=== PATIENT | male | born 1955 | race Caucasian/White ===

== ENCOUNTER 2024-04-16 11:35 | Emergency (ER) | payer OTHER ==
[2024-04-16] MEDS ORDERED: ONDANSETRON 4 MG/2 ML VIAL ONE (12:55)
[2024-04-16] MEDS ORDERED: FENTANYL CITR 100 MCG/2 ML ONE (12:56)
[2024-04-16 13:01] LABS: Absolute Basophils 0.1 K/uL (0-0.5); Absolute Eosinophils 0.4 K/uL (0-0.5); Absolute Lymphocytes (CBC) 1.1 K/uL (0.7-4.9); Absolute Monocytes 0.8 K/uL (0.1-1.3); Absolute Neutrophil 6.4 K/uL (1.8-8.0); Basophils % 0.9 % (0-1.3); Eosinophils % 4.1 % (0-4.4); Hematocrit 47.7 % (39.6-49.0); Hemoglobin 15.4 g/dL (13.6-17.9); Lymphocytes % 12.3 % (15.3-44.8); MCH 29.4 pg (27.0-35.0); MCHC 32.3 g/dL (32.0-36.0); MCV 91.2 fL (80-100); MPV 7.5 fL (7.6-11.3); Monocytes % 8.7 % (3.3-12.3); Nucleated Red Blood Cells % 0.1 % (0-0); Platelets 261 thou/uL (152-406); RBC Red Blood Cell Count 5.23 M/uL (4.33-5.43); Red Cell Distribution Width 14.3 % (12.1-15.2)
--- NOTE | 2024-04-16 13:15 | RAD REPORT ---
EXAMINATION: US Extrem Venous W Compress Sravan CLINICAL INDICATION: [facility] MAIN Pain;Swelling Bed Name: IW1 N TECHNIQUE: Complete bilateral duplex sonography of the BILATERAL lower extremity veins was performed. The examination included compression for vein patency, color Doppler imaging and flow augmentation in response to distal compression of the distal external iliac, common femoral, femoral, popliteal, t ibial, and great and small saphenous veins. COMPARISON: No prior exam. FINDINGS: Duplex sonography testing of the veins of the BILATERAL lower extremity was performed. Color flow pauline ging shows all veins to be compressible with [id number] color filling. Pulsatile and phasic flow is present within all lower extremity deep and superficial veins examined. IMPRESSION: There is no deep vein or superficial vein thrombosis.
[2024-04-16 13:21] LABS: Albumin 2.6 g/dL (3.4-5.0); Albumin/Globulin Ratio 0.7 (1.1-1.8); Bilirubin Direct 0.5 mg/dL (0-0.2); Bilirubin Indirect, Calculated 0.8 mg/dL (0.2-0.8); Bilirubin Total 1.3 mg/dL (0.2-1.0); Protein, Total 6.6 g/dL (6.4-8.2); Troponin High Sensitivity 3.8 pg/mL (<58.9)
--- NOTE | 2024-04-16 13:51 | RAD REPORT ---
EXAMINATION: ONE VIEW CHEST XR CLINICAL INDICATION: Male, 68 years old.,DYSPNEA TECHNIQUE: Frontal chest projection is submitted. Examination is limited by patient positioning and t echnique. COMPARISON: No prior exam. FINDINGS: Decreased inspiratory effort limits evaluation. Streaky left basilar opacification, could reflect ate lectasis, subpulmonic effusion, or a combination of both. No pneumothorax or other sizable effusion. The heart is normal in size. Mediastinal contours are unremarkable. IMPRESSION: As above.
[2024-04-16 13:58] LABS: PT Prothrombin Time 14.3 SECONDS (9.4-12.5); Protime INR 1.37
--- NOTE | 2024-04-16 15:17 | EDPHYS ---
Physician Documentation [facility] Name: Zen Berg Age: 68 yrs Sex: Male : 1955 Arrival Date: 04/16/2024 Time: 11:35 Bed 6 Private MD: YARIEL Physician Stas Larsen HPI: 04/16 15:13 This 68 yrs old Male presents to ER via Wheelchair with complaints of BL foot kasia swelling and painful. 15:13 The patient presents with pain, swelling. The complaints affect the right leg and left kasia leg. Context: The problem was sustained at an unknown site. Modifying factors: The symptoms are alleviated by elevating leg, the symptoms are aggravated by movement. Associated signs and symptoms: The patient has no apparent associated signs or symptoms. leg swelling. Treatment prior to arrival includes: no previous treatment. Severity of symptoms: At their worst the symptoms were mild in the emergency department the symptoms are unchanged. The patient has experienced similar episodes in the past, multiple times. Historical: - Allergies: 11:54 Chlorhexidine Gluconate; ph 11:54 Bees; ph - PMHx: 11:54 Atrial fibrillation; Hypercholesterolemia; Hypertensive disorder; Gout; ph - PSHx: 11:54 Appendectomy; ph - Immunization history:: Adult Immunizations unknown. - Infectious Disease History:: Denies. - Social history:: Smoking status: Patient denies any tobacco usage or history of. - Family history:: not pertinent. ROS: 15:13 Constitutional: Negative for fever, chills, and weight loss, Eyes: Negative for injury, kasia pain, redness, and discharge, ENT: Negative for injury, pain, and discharge, Neck: Negative for injury, pain, and swelling, Cardiovascular: Negative for chest pain, palpitations, and edema, Respiratory: Negative for shortness of breath, cough, wheezing, and pleuritic chest pain, Abdomen/GI: Negative for abdominal pain, nausea, vomiting, diarrhea, and constipation, Back: Negative for injury and pain, : Negative for injury, bleeding, discharge, and swelling, Skin: Negative for injury, rash, and discoloration, Neuro: Negative for headache, weakness, numbness, tingling, and seizure, Psych: Negative for depression, anxiety, suicide ideation, homicidal ideation, and hallucinations, Allergy/Immunology: Negative for hives, rash, and allergies, Endocrine: Negative for neck swelling, polydipsia, polyuria, polyphagia, and marked weight changes, Hematologic/Lymphatic: Negative for swollen nodes, abnormal bleeding, and unusual bruising, 15:13 MS/extremity: Positive for swelling, of the right leg and left leg, Exam: 15:17 Constitutional: This is a well developed, well nourished patient who is awake, alert, kasia and in no acute distress. Head/Face: Normocephalic, atraumatic. Eyes: Pupils equal round and reactive to light, extra-ocular motions intact. Lids and lashes normal. Conjunctiva and sclera are non-icteric and not injected. Cornea within normal limits. Periorbital areas with no swelling, redness, or edema. ENT: Nares patent. No nasal discharge, no septal abnormalities noted. Tympanic membranes are normal and external auditory canals are clear. Oropharynx with no redness, swelling, or masses, exudates, or evidence of obstruction, uvula midline. Mucous membranes moist. Neck: Trachea midline, no thyromegaly or masses palpated, and no cervical lymphadenopathy. Supple, full range of motion without nuchal rigidity, or vertebral point tenderness. No Meningismus. Chest/axilla: Normal chest wall appearance and motion. Nontender with no deformity. No lesions are appreciated. Cardiovascular: Regular rate and rhythm with a normal S1 and S2. No gallops, murmurs, or rubs. Normal PMI, no JVD. No pulse deficits. Respiratory: Lungs have equal breath sounds bilaterally, clear to auscultation and percussion. No rales, rhonchi or wheezes noted. No increased work of breathing, no retractions or nasal flaring. Abdomen/GI: Soft, non-tender, with normal bowel sounds. No distension or tympany. No guarding or rebound. No evidence of tenderness throughout. Back: No spinal tenderness. No costovertebral tenderness. Full range of motion. Skin: Warm, dry with normal turgor. Normal color with no rashes, no lesions, and no evidence of cellulitis. Neuro: Awake and alert, GCS 15, oriented to person, place, time, and situation. Cranial nerves II-XII grossly intact. Motor strength 5/5 in all extremities. Sensory grossly intact. Cerebellar exam normal. Normal gait. Psych: Awake, alert, with orientation to person, place and time. Behavior, mood, and affect are within normal limits. 15:17 ECG was reviewed by the Attending Physician. Vital Signs: 11:53 BP 123 / 91; Pulse 75; Resp 18; Temp 97.5; Pulse Ox 98% on R/A; Weight 111.13 kg; ph Height 5 ft. 9 in. ; 14:39 BP 112 / 83; Pulse 70; ld1 15:30 BP 118 / 84; Pulse 74; Resp 17; Pulse Ox 98% ; cm10 11:53 Body Mass Index 36.18 (111.13 kg, 175.26 cm) ph MDM: 11:51 Medical Screening Exam initiated kasia 15:18 Differential diagnosis: contusion, tendonitis. Differential Diagnosis sepsis, flu. Data [facility] reviewed: vital signs, nurses notes, lab test result(s), EKG, radiologic studies, doppler, plain films. Consideration of Admission/Observation Escalation of care including admission/observation considered. I considered the following discharge prescriptions or medication management in the emergency department Medications were administered in the Emergency Department. See MAR. Independent interpretation of the following test(s) in the Emergency Department EKG: See my EKG interpretation above. Test considered but Not performed: Ultrasound no 2 d echo. Historians other than the Patient: Spouse/Significant Other: well informed. Care significantly affected by the following chronic conditions: Hypertension, Congestive Heart Failure, Obesity, a fib, high chlesterol. Counseling: I had a detailed discussion with the patient and/or guardian regarding the historical points, exam findings, and any diagnostic results supporting the discharge/admit diagnosis, lab results, radiology results, the need for outpatient follow up, for definitive care, a vocational examiner, an physics faculty member. 04/16 11:52 Order name: Basic Metabolic Panel; Complete Time: 15: [facility] 04/16 11:52 Order name: CBC with Diff; Complete Time: 15: [facility] 04/16 11:52 Order name: LFT's; Complete Time: 15: [facility] 04/16 11:52 Order name: Magnesium; Complete Time: 15: [facility] 04/16 11:52 Order name: NT PRO-BNP; Complete Time: 15: [facility] 04/16 11:52 Order name: PT-INR; Complete Time: 15: [facility] 04/16 11:52 Order name: Troponin HS; Complete Time: 15: [facility] 04/16 11:52 Order name: Urinalysis w/ reflexes; Complete Time: 15:53 [facility] 04/16 11:52 Order name: XRAY Chest (1 view); Complete Time: 15:07 [facility] 04/16 11:52 Order name: US Extremity Venous W Compression Sravan; Complete Time: 15:07 [facility] 04/16 15:12 Order name: INCENTIVE SPIROMETRY 04/16 11:52 Order name: Cardiac monitoring; Complete Time: 13:11 [facility] 04/16 11:52 Order name: EKG - Nurse/Tech; Complete Time: 13:11 [facility] 04/16 11:52 Order name: IV Saline Lock; Complete Time: 12:52 [facility] 04/16 11:52 Order name: Labs collected and sent; Complete Time: 12:52 [facility] 04/16 11:52 Order name: O2 Per Protocol; Complete Time: 12:52 [facility] 04/16 11:52 Order name: O2 Sat Monitoring; Complete Time: 12:52 [facility] 04/16 13:21 Order name: Labs - recollect needed: recollect the coags hemolyzed per lab; Complete eb Time: 13:47 EC:17 Rate is 67 beats/min. Rhythm is irregularly irregular. QRS Morgan is Normal. MO interval kasia is normal. QRS interval is normal. QT interval is normal. No Q waves. T waves are Normal. No ST changes noted. Clinical impression: Atrial Fibrillation. Interpreted by me. Reviewed by me. Administered Medications: 13:10 Drug: fentaNYL (PF) IVP 25 mcg IVP once Route: IVP; Site: right forearm; cm10 13:45 Follow up: Response: No adverse reaction cm10 13:10 Drug: Ondansetron IVP 4 mg IVP once; over 2 minutes Route: IVP; Site: right forearm; cm10 13:45 Follow up: Response: No adverse reaction cm10 Disposition Summary: 04/16/24 15:17 Discharge Ordered Notes: Location: Home kasia Problem: new kasia Symptoms: have improved kasia Condition: Stable kasia Diagnosis - Edema, unspecified kasia - Persistent atrial fibrillation kasia - Atelectasis kasia Followup: kasia - With: Private Physician - When: 2 - 3 days - Reason: Recheck today's complaints, Continuance of care, Re-evaluation by your physician Followup: kasia - With: Bryan Greenwood MD - When: 2 - 3 days - Reason: Recheck today's complaints, Re-evaluation by your physician Followup: kasia - With: Pancho Quintero MD - When: 2 - 3 days - Reason: Recheck today's complaints, Re-evaluation by your physician Discharge Instructions: - Discharge Summary Sheet kasia - Atelectasis, Adult kasia - Atrial Fibrillation kasia - Edema kasia - Edema, [id number] kasia - Peripheral Edema kasia Forms: - Medication Reconciliation Form kasia - Antibiotic Education kasia - Prescription Opioid Use kasia - Patient Portal Instructions kasia - Leadership Thank You Letter kasia Signatures: Dispatcher [employer] EDMS Stas Larsen MD MD cha Hall, Patricia, RN RN Perri Beaulieu Clarissa, RN RN cm10 Corrections: (The following items were deleted from the chart) 11:53 11:53 BASIC METABOLIC PANEL+C.LAB.BRZ ordered. EDMS EDMS 11:53 11:53 CBC+H.LAB.BRZ ordered. EDMS EDMS 11:53 11:53 HEPATIC FUNCTION+C.LAB.BRZ ordered. EDMS EDMS 11:53 11:53 MAGNESIUM+C.LAB.BRZ ordered. EDMS EDMS 11:53 11:53 PROBNP+C.LAB.BRZ ordered. EDMS EDMS 11:53 11:53 PROTIME (+INR)+COAG.LAB.BRZ ordered. EDMS EDMS 11:53 11:53 Troponin High Sensitivity+C.LAB.BRZ ordered. EDMS EDMS 11:53 11:53 Urinalysis+U.LAB.BRZ ordered. EDMS EDMS 11:53 11:53 Chest Single View+RAD.RAD.BRZ ordered. EDMS EDMS 11:53 11:53 Extrem Venous W Compression Sravan+US.RAD.BRZ ordered. EDMS EDMS 15:53 15:20 Proteinuria, unspecified kasia kasia
--- NOTE | 2024-04-16 15:17 | ER ---
Nurse's Notes [facility] Name: Zen Berg Age: 68 yrs Sex: Male : 1955 Arrival Date: 04/16/2024 Time: 11:35 Bed 6 Private MD: Diagnosis: Edema, unspecified;Persistent atrial fibrillation;Atelectasis Presentation: 04/16 11:53 Chief complaint: Patient states: Bilateral leg swelling that has been ongoing for ph months, not worse today, pt states, " I just can't take it anymore." Does take Lasix but states that it is not helping. Coronavirus screen: Vaccine status: Patient reports being unvaccinated. Ebola Screen: No symptoms or risks identified at this time. Initial Sepsis Screen: Does the patient meet any 2 criteria? No. Patient's initial sepsis screen is negative. Does the patient have a suspected source of infection? No. Patient's initial sepsis screen is negative. Risk Assessment: Do you want to hurt yourself or someone else? Patient reports no desire to harm self or others. Onset of symptoms was April 16, 2024. 11:53 Method Of Arrival: Wheelchair ph 11:53 Acuity: JAYDE 3 ph Triage Assessment: 11:57 General: Appears in no apparent distress. comfortable, Behavior is calm, cooperative. ph Pain: Denies pain. Cardiovascular: Edema is 2+ to left midcalf, left ankle, right midcalf and right ankle. Historical: - Allergies: 11:54 Chlorhexidine Gluconate; ph 11:54 Bees; ph - PMHx: 11:54 Atrial fibrillation; Hypercholesterolemia; Hypertensive disorder; Gout; ph - PSHx: 11:54 Appendectomy; ph - Immunization history:: Adult Immunizations unknown. - Infectious Disease History:: Denies. - Social history:: Smoking status: Patient denies any tobacco usage or history of. - Family history:: not pertinent. Screenin:11 [facility] ED Fall Risk Assessment (Adult) History of falling in the last 3 months, cm10 including since admission No falls in past 3 months (0 pts) Confusion or Disorientation No (0 pts) Intoxicated or Sedated No (0 pts) Impaired Gait No (0 pts) Mobility Assist Device Used No (0 pt) Altered Elimination No (0 pt) Score/Fall Risk Level 0 - 2 = Low Risk Oriented to surroundings, Maintained a safe environment, Hourly rounding (assess needs \\T\\ fall precautionary measures) done. Abuse screen: Denies threats or abuse. Denies injuries from another. Nutritional screening: No deficits noted. Tuberculosis screening: No symptoms or risk factors identified. Assessment: 13:16 General: Appears in no apparent distress. uncomfortable, Behavior is calm, cooperative. cm10 Neuro: No deficits noted. Level of Consciousness is awake, alert, obeys commands, Oriented to person, place, time, situation, Appropriate for age. Respiratory: No deficits noted. Airway is patent Respiratory effort is even, unlabored, Respiratory pattern is regular, symmetrical. Musculoskeletal: Reports pain in right ankle and right midcalf and left ankle and left midcalf. Vital Signs: 11:53 BP 123 / 91; Pulse 75; Resp 18; Temp 97.5; Pulse Ox 98% on R/A; Weight 111.13 kg; ph Height 5 ft. 9 in. ; 14:39 BP 112 / 83; Pulse 70; ld1 15:30 BP 118 / 84; Pulse 74; Resp 17; Pulse Ox 98% ; cm10 11:53 Body Mass Index 36.18 (111.13 kg, 175.26 cm) ph ED Course: 11:39 Patient arrived in ED. ra3 11:51 Stas Larsen MD is Attending Physician. kasia 11:54 Triage completed. ph 11:57 Arm band placed on Patient placed in waiting room, Patient notified of wait time. ph 12:36 XRAY Chest (1 view) In Process Unspecified. EDMS 12:39 Mary Richardson, RN is Primary Nurse. cm10 12:43 US Extremity Venous W Compression Sravan In Process Unspecified. EDMS 12:52 Basic Metabolic Panel Sent. cm10 12:52 CBC with Diff Sent. cm10 12:52 LFT's Sent. cm10 12:52 Magnesium Sent. cm10 12:52 NT PRO-BNP Sent. cm10 12:52 PT-INR Sent. cm10 12:52 Troponin HS Sent. cm10 12:52 Initial lab(s) drawn, by me, sent to lab. Inserted saline lock: 20 gauge in right cm10 forearm, using aseptic technique. Blood collected. Flushed with 10 mL NS. 13:11 Patient has correct armband on for positive identification. Bed in low position. Call cm10 light in reach. Side rails up X2. Provided Education on: ER process and procedures.. Client placed on continuous cardiac and pulse oximetry monitoring. NIBP monitoring applied. slubber frame changer on. 13:11 EKG done, by ED staff, reviewed by Stas Larsen MD. cm10 15:21 Bryan Greenwood MD is Referral Physician. kasia 15:21 Pancho Quintero MD is Referral Physician. kasia 16:29 IV discontinued, intact, bleeding controlled, No redness/swelling at site. Pressure ap3 dressing applied. 16:37 No provider procedures requiring assistance completed. cm10 Administered Medications: 13:10 Drug: fentaNYL (PF) IVP 25 mcg IVP once Route: IVP; Site: right forearm; cm10 13:45 Follow up: Response: No adverse reaction cm10 13:10 Drug: Ondansetron IVP 4 mg IVP once; over 2 minutes Route: IVP; Site: right forearm; cm10 13:45 Follow up: Response: No adverse reaction cm10 Medication: 13:11 VIS not applicable for this client. cm10 Outcome: 15:17 Discharge ordered by . [facility] 16:29 Discharged to home via wheelchair, with family, ap3 16:29 Condition: good 16:29 Discharge instructions given to patient, family, Instructed on discharge instructions, follow up and referral plans. Demonstrated understanding of instructions, follow-up care, 16:37 Patient left the ED. cm10 Signatures: Dispatcher [employer] EDMS Stas Larsen MD MD cha Hall, Patricia RN RN ph Luciana Dudley RN RN ap3 Gracy Perkins RN RN [email or web address] Mary Richardson RN RN cm10 Nazanin Jasso ra3 Corrections: (The following items were deleted from the chart) 12:38 12:35 Patient's name was called from ER lobby. No response. Unable to locate patient. ph Will disposition as left without being seen by a provider. ph 12:52 12:24 Patient's name was called from ER lobby. No response. ph cm10
[2024-04-16 15:45] LABS: Specific Gravity 1.008 (1.005-1.030); Urine Bilirubin NEGATIVE (Negative); Urine Blood Negative (Negative); Urine Clarity Clear (Clear); Urine Color Light-Yellow (Yellow); Urine Glucose NEGATIVE (Negative); Urine Ketones NEGATIVE (Negative); Urine Microscopic Reflex YN NO UMIC; Urine Nitrite NEGATIVE (Negative); Urine Protein NEGATIVE (Negative); Urine Urobilinogen Normal (Normal)
[2024-04-16 17:26] VITALS: TEMP 97.5; O2SAT 98
[2024-04-16 17:37] VITALS: BP 118/84
== END 2024-04-16 16:37 | disposition home or self-care (01) ==
LOC: ER 11:35
DX: R60.9 Edema, unspecified (principal); I48.19 Other persistent atrial fibrillation; J98.11 Atelectasis; I10 Essential (primary) hypertension; E78.00 Pure hypercholesterolemia, unspecified; Z88.8 Allergy status to other drugs, medicaments and biological substances; Z91.030 Bee allergy status
CPT/HCPCS: 85025; 80048; 36415; 83735; 85610; 80076; 81003; 84484; 83880; 71045; 93970; 96375; 96374; 99285; J3010; J2405

== ENCOUNTER 2024-04-20 18:19 | Inpatient (IN) | payer OTHER ==
--- OUTSIDE RECORDS SUMMARY | 2024-04-20 18:20 | XMS REPORT | Continuity of Care Document ---
Author Name Unknown Address [address] [place] [address] [facility] [employer] Address [address] [place] [address] Care Team Providers Care Radar Tester Name Role Phone No, PCP Attending Clinician Unavailable Payers Payer Name Policy Type Policy Number Effective Date Expirati on Date Source [facility] Medicare Advantage Plan 53 [id number] [facility] Problems Condition Name Condition Details Condition Category Status Onset Date Resolution Date Last Treatment Date Treating Clinician Comments Source Acquired hallux rigidus Hallux rigidus of right foot Problem [facility] Allergies, Adverse Reactions, Alerts Allergy Name Allergy Type Status Severity Reaction(s) Onset Date Inactive Date Treating Clinician Comments Source chlorhex idine chlorhex idine Active Unknown [facility] cholesty ramine resin cholesty ramine resin Active Unknown [facility] Social History Social Habit Start Date Stop Date Quantity Comments Source Sex Assigned At [facility] History of Tobacco Use [facility] Vital Signs Vital Name Observation Time Observation Value Comments S ource height 2024-01-25 15:15:00 69 [in_i] [facility] weight-kg 2024-01-25 15:15:00 111.13 kg [facility] bmi 2024-01-25 15:15:00 36.18 kg/m2 [facility] Encounters Start Date/Time End Date/Time Encounter Type Admission Type Attending Clinicians Care Facility Care Department Encounter ID Source 2024-01-25 15:18:01 Outpatient No, PCP CLS CLS [id number] [facility] 2024-01-25 00:00:00 2024-01-25 00:00:00 Office Visit- New Pt.- Level 4 CLS CLS [id number] [facility] ties
[2024-04-20 19:27] LABS: Absolute Basophils 0.1 K/uL (0-0.5); Absolute Eosinophils 0.1 K/uL (0-0.5); Absolute Lymphocytes (CBC) 1.2 K/uL (0.7-4.9); Absolute Monocytes 1.3 K/uL (0.1-1.3); Absolute Neutrophil 7.3 K/uL (1.8-8.0); Basophils % 0.6 % (0-1.3); Hematocrit 44.8 % (39.6-49.0); Hemoglobin 14.6 g/dL (13.6-17.9); Lymphocytes % 12.6 % (15.3-44.8); MCHC 32.5 g/dL (32.0-36.0); MCV 89.4 fL (80-100); MPV 7.7 fL (7.6-11.3); Monocytes % 12.7 % (3.3-12.3); Neutrophils % 73.1 % (41.7-73.7); Platelets 274 thou/uL (152-406); RBC Red Blood Cell Count 5.02 M/uL (4.33-5.43); Red Cell Distribution Width 14.3 % (12.1-15.2)
[2024-04-20 19:48] LABS: Protime INR 1.34
[2024-04-20 19:57] LABS: SARS-CoV-2 Antigen CONTROL BLUE LINE VIS/BG OK; SARS-CoV-2 Antigen Rapid Res Negative (Negative)
[2024-04-20] MEDS ORDERED: IPRATROPIUM BROM 0.5MG/2.5ML ONE (19:57)
[2024-04-20] MEDS ORDERED: ALBUTEROL 2.5 MG/3 ML NEB SOL ONE (19:57)
[2024-04-20 20:08] LABS: Specific Gravity 1.019 (1.005-1.030); Sqamous Epithelial None Seen /HPF (None Seen); Urine Bacteria <20 /HPF (<20); Urine Bilirubin NEGATIVE (Negative); Urine Blood Negative (Negative); Urine Clarity Turbid (Clear); Urine Color Yellow (Yellow); Urine Culture Reflex Order NOT NEEDED; Urine Glucose NEGATIVE (Negative); Urine Ketones NEGATIVE (Negative); Urine Micro Reflex YN NO BILL MICROSCOPIC; Urine Nitrite NEGATIVE (Negative); Urine Protein TRACE (Negative); Urine RBC <5 /HPF (None Seen); Urine Urobilinogen 1+ (Normal); Urine WBC <5 /HPF (<5); Urine pH 5.5 (5.0-7.0)
[2024-04-20 20:27] LABS: Albumin 2.6 g/dL (3.4-5.0); Albumin/Globulin Ratio 0.7 (1.1-1.8); Anion Gap 6.7 mEq/L (5.0-15.0); Bilirubin Direct 0.5 mg/dL (0-0.2); Bilirubin Indirect, Calculated 0.7 mg/dL (0.2-0.8); Bilirubin Total 1.2 mg/dL (0.2-1.0); Magnesium 1.8 mg/dL (1.6-2.4); Potassium 3.7 mEq/L (3.5-5.1); Protein, Total 6.6 g/dL (6.4-8.2); Troponin High Sensitivity 5.8 pg/mL (<58.9)
--- NOTE | 2024-04-20 20:33 | RAD REPORT ---
EXAMINATION: ONE VIEW CHEST XR CLINICAL INDICATION: Male, 68 years old.,Chest pain;SOB TECHNIQUE: Frontal chest projection is submitted. Examination is limited by patient positioning and t echnique. COMPARISON: 04/16/2024 FINDINGS: Decreased inspiratory effort. Apparent progression of retrocardiac opacity with possible small effusi on. No pneumothorax or other sizable effusion. The heart is moderately enlarged in size. Mediastinal contours are unremarkable. IMPRESSION: Progressive retrocardiac opacity with possible small effusion, may relate to atelectasis or developin g pneumonia.
--- NOTE | 2024-04-20 21:15 | RAD REPORT ---
EXAM: CT Head Brain Wo Cont HISTORY: WEAKNESS COMPARISON: None TECHNIQUE: Multiple contiguous axial images were obtained for a CT of the brain without contrast. Sag ittal and coronal reformats were performed. One or more of the following dose reduction techniques were used: Automated exposure control, adjus tment of the mA and kV according to patient size, and iterative reconstruction. Unless otherwise specified, incidental findings do not require dedicated imaging follow-up. FINDINGS: No evidence of hydrocephalus, intracranial hemorrhage, or extra-axial fluid collection. Focus of hypoattenuation in the subinsular region, may represent a prominent perivascular space. The brain is otherwise normal in morphology. The calvarium is intact, with sequelae of prior right frontoparietal craniotomy. The visualized paran chris sinuses and mastoid air cells are essentially clear. IMPRESSION: No evidence of acute intracranial abnormality.
--- NOTE | 2024-04-20 21:24 | RAD REPORT ---
EXAM: CT CHEST, ABDOMEN AND PELVIS WITH CONTRAST CLINICAL INDICATION: Male, 68 years old. sob, low back pain TECHNIQUE: CT chest, abdomen, and pelvis was performed, following the administration of contrast, as per department protocol. Axial, sagittal and coronal reconstructions were obtained. One or more of the following dose reduction techniques were used: Automated exposure control, adjustment of the mA a nd/or kV according to patient size, and/or iterative reconstruction. Unless otherwise specified, incidental findings do not require dedicated imaging follow-up. COMPARISON: No prior exam. FINDINGS: LUNGS AND AIRWAYS: Patchy dependent left lower lobe airspace opacities. Dependent platelike right low er lobe atelectatic changes. Moderate cardiomegaly. PLEURA: Small layering left pleural effusion. No pneumothorax. MEDIASTINUM AND LYMPH NODES: No mediastinal mass or fluid collection. Prominent right posterior media stinum lymph node measuring 1.3 cm in short axis. Otherwise normal size mediastinal, hilar, and axillary lymph nodes. THORACIC AORTA: Normal caliber and configuration. PULMONARY ARTERIES: Normal caliber. OSSEOUS STRUCTURES AND CHEST WALL: Intact. LIVER: The liver demonstrates mild fatty infiltration. No focal lesion or biliary dilitation is seen. BILIARY SYSTEM: Status post cholecystectomy. PANCREAS: No mass, ductal dilation, or david-pancreatic fluid. SPLEEN: Normal size. No focal lesion. ADRENALS: Normal; no mass. KIDNEYS AND URETERS: Normal size and contour. No hydronephrosis. URINARY BLADDER: Normal contour. GASTROINTESTINAL TRACT: No bowel obstruction, free air, significant free fluid or abscess. APPENDIX: Not discretely visualized, although without evidence of adjacent inflammatory changes. LYMPH NODES: No lymphadenopathy. ABDOMINAL AORTA AND OTHER VESSELS: Normal caliber aorta and IVC. MUSCULOSKELETAL: Sequelae of L5-S1 posterior fusion. Superior endplate compression deformity at L2, i ndeterminate, but favor to be chronic. No acute or suspicious osseous abnormality. Bilateral small fat containing inguinal hernias larger on the right. Moderate right hydrocele. IMPRESSION: Patchy left lower lobe airspace opacities with small layering left pleural effusion. This is concerni ng for an infectious or inflammatory process such as pneumonia, until proven otherwise. Prominent posterior mediastinal lymph nodes, may be reactive or inflammatory. No acute or significant abnormalities seen in the abdomen or pelvis. Incidental findings as above.
[2024-04-20] MEDS ORDERED: ACETYLCYST 6,000 MG/30 ML VIAL ONE (21:41)
--- NOTE | 2024-04-20 21:58 | ER ---
Nurse's Notes [facility] Name: Zen Berg Age: 68 yrs Sex: Male : 1955 Arrival Date: 04/20/2024 Time: 18:19 Bed 6 Private MD: Diagnosis: Pneumonia in diseases classified elsewhere Presentation: 04/20 18:49 Chief complaint: Spouse and/or significant other states: patient has been having ap3 increased shortness of breath since this afternoon, and is also having chest pain when he takes a deep breath. patient's also reports patient is acting "goofy" today. Coronavirus screen: At this time, the client does not indicate any symptoms associated with coronavirus-19. Ebola Screen: No symptoms or risks identified at this time. Initial Sepsis Screen: Does the patient meet any 2 criteria? No. Patient's initial sepsis screen is negative. Does the patient have a suspected source of infection? No. Patient's initial sepsis screen is negative. Risk Assessment: Do you want to hurt yourself or someone else? Patient reports no desire to harm self or others. Onset of symptoms is unknown. 18:49 Method Of Arrival: Wheelchair ap3 18:49 Acuity: JAYDE 2 ap3 Triage Assessment: 18:53 General: Appears distressed, Behavior is cooperative, appropriate for age, anxious. ap3 Pain: Complains of pain in back and chest. Neuro: Level of Consciousness is awake, alert, obeys commands, Oriented to person, place, time, situation, Speech is normal. Cardiovascular: Patient's skin is warm and dry. Respiratory: Reports shortness of breath at rest since today Airway is patent Respiratory effort is even, unlabored, Respiratory pattern is regular, symmetrical, tachypnea Onset: The symptoms/episode began/occurred gradually. Historical: - Allergies: 18:52 Bees; ap3 18:52 Chlorhexidine Gluconate; ap3 - PMHx: 18:52 Atrial fibrillation; Gout; Hypercholesterolemia; Hypertensive disorder; ap3 - PSHx: 18:52 Appendectomy; ap3 - Immunization history:: Client reports having NOT received the Covid vaccine. - Infectious Disease History:: Denies. - Social history:: Smoking status: Patient denies any tobacco usage or history of. Screenin:53 [facility] Fall Risk Assessment (Adult) History of falling in the last 3 months, ph including since admission No falls in past 3 months (0 pts) Confusion or Disorientation No (0 pts) Intoxicated or Sedated No (0 pts) Impaired Gait No (0 pts) Mobility Assist Device Used No (0 pt) Altered Elimination No (0 pt) Score/Fall Risk Level 0 - 2 = Low Risk Oriented to surroundings, Maintained a safe environment, Hourly rounding (assess needs \\T\\ fall precautionary measures) done. Abuse screen: Denies threats or abuse. Denies injuries from another. Nutritional screening: No deficits noted. Tuberculosis screening: No symptoms or risk factors identified. 18:55 Abuse screen: Denies threats or abuse. Nutritional screening: No deficits noted. ap3 Tuberculosis screening: No symptoms or risk factors identified. Assessment: 19:02 General: Appears in no apparent distress. comfortable, well groomed, well developed, kc6 Behavior is calm, cooperative, appropriate for age. Pain: Complains of pain in left leg and chest and back. Neuro: Level of Consciousness is awake, alert, obeys commands, Oriented to person, place, situation, Appropriate for age Maori Liaison Adviser are equal bilaterally Moves all extremities. Full function Gait is steady, Speech is normal, Facial symmetry appears normal, Pupils are PERRLA, Intact Babinski is positive. Cardiovascular: Capillary refill < 3 seconds Rhythm is atrial fibrillation. Respiratory: Reports shortness of breath at rest on exertion Airway is patent Trachea midline Respiratory effort is even, unlabored, Respiratory pattern is regular, symmetrical, Breath sounds with wheezes bilaterally. GI: No signs and/or symptoms were reported involving the gastrointestinal system. : No signs and/or symptoms were reported regarding the genitourinary system. EENT: No signs and/or symptoms were reported regarding the EENT system. Derm: No signs and/or symptoms reported regarding the dermatologic system. Skin is intact, is healthy with good turgor, Skin is pink, warm \\T\\ dry. Musculoskeletal: No signs and/or symptoms reported regarding the musculoskeletal system. Circulation, motion, and sensation intact. Range of motion: intact in all extremities. 20:13 Reassessment: Patient appears in no apparent distress at this time. No changes from kc6 previously documented assessment. Patient and/or family updated on plan of care and expected duration. Pain level reassessed. Patient is alert, oriented x 3, equal unlabored respirations, skin warm/dry/pink. 21:13 Reassessment: Patient appears in no apparent distress at this time. No changes from kc6 previously documented assessment. Patient and/or family updated on plan of care and expected duration. Pain level reassessed. Patient is alert, oriented x 3, equal unlabored respirations, skin warm/dry/pink. 22:12 Reassessment: Patient appears in no apparent distress at this time. No changes from kc6 previously documented assessment. Patient and/or family updated on plan of care and expected duration. Pain level reassessed. Patient is alert, oriented x 3, equal unlabored respirations, skin warm/dry/pink. 22:38 Reassessment: Patient appears in no apparent distress at this time. Patient and/or jb4 family updated on plan of care and expected duration. Pain level reassessed. Patient is alert, oriented x 3, equal unlabored respirations, skin warm/dry/pink. 23:25 Reassessment: Patient appears in no apparent distress at this time. Patient and/or jb4 family updated on plan of care and expected duration. Pain level reassessed. Patient is alert, oriented x 3, equal unlabored respirations, skin warm/dry/pink. 04/21 01:19 Reassessment: Patient appears in no apparent distress at this time. No changes from al5 previously documented assessment. Patient and/or family updated on plan of care and expected duration. Pain level reassessed. Patient is alert, oriented x 3, equal unlabored respirations, skin warm/dry/pink. Vital Signs: 04/20 18:49 BP 120 / 75; Pulse 88; Resp 24; Temp 99.9(O); Pulse Ox 97% on R/A; Weight 111.13 kg; ap3 20:13 BP 109 / 81; Pulse 90; Resp 18 S; Pulse Ox 96% on R/A; kc6 22:12 BP 151 / 102; Pulse 89; Resp 18 S; Pulse Ox 99% on R/A; kc6 22:38 BP 108 / 83; Pulse 85; Resp 21 S; Pulse Ox 95% on R/A; jb4 23:05 Temp 99.3(O); jb4 23:25 BP 107 / 80; Pulse 83; Resp 20; Pulse Ox 97% on R/A; jb4 04/21 01:17 BP 113 / 74; Pulse 89; Resp 28 S; Pulse Ox 94% on R/A; br2 ED Course: 04/20 18:20 Patient arrived in ED. ra3 18:37 Stas Miles PA is PHCP. cp 18:37 Yossi Jacobsen MD is Attending Physician. cp 18:52 Triage completed. ap3 18:54 Arm band placed on right wrist. ap3 18:54 Bed in low position. Call light in reach. Side rails up X 1. Adult w/ patient. Client ap3 placed on continuous cardiac and pulse oximetry monitoring. NIBP monitoring applied. net programmer on. Pulse ox on. NIBP on. 19:02 Mimi Sam RN is Primary Nurse. kc6 19:16 Inserted saline lock: 20 gauge in right antecubital area, using aseptic technique. kc6 Blood collected. Flushed with 10 mL NS. Patient maintains SpO2 saturation greater than 95% on room air. 19:21 XRAY Chest (1 view) In Process Unspecified. EDMS 19:36 Urinalysis W/Microscopic Sent. kc6 20:53 CT Head Brain wo Cont In Process Unspecified. EDMS 20:53 CT Chest, Abdomen, Pelvis - W/Contrast In Process Unspecified. EDMS 21:57 Oniel Lowe MD is Hospitalizing Provider. cp 22:00 Report given to ALMA Chowdhury. kc6 22:09 Tomas Sanchez MD is Attending Physician. cp 23:31 Provided Education on: plan of care. jb4 04/21 02:26 Primary Nurse role handed off by Mimi Sam RN 03:49 Luciana No RN is Primary Nurse. al5 Administered Medications: 04/20 19:59 Drug: DuoNeb Nebulize (2.5 mg - 0.5 mg) 3 ml Nebulizer once Route: Nebulizer; kc6 22:12 Follow up: Response: No adverse reaction kc6 21:52 Drug: Mucomyst - Acetylcysteine PO 600 mg PO once Route: PO; jb4 22:12 Follow up: Response: No adverse reaction kc6 23:05 Drug: Rocephin IV 1 grams IV at calculated rate once; Given slow IV push per pharmacy jb4 instructions Route: IV; Rate: calculated rate; Site: right antecubital; 04/21 00:10 Follow up: Response: No adverse reaction; IV Status: Completed infusion; IV Intake: [id number] 04/20 23:05 Drug: Zithromax IVPB 500 mg IVPB once over 1 hrs; mix in 250 mL NS Route: IVPB; Infused jb4 Over: 1 hrs; Site: right antecubital; 04/21 00:10 Follow up: Response: No adverse reaction; IV Status: Completed infusion; IV Intake: al5 250ml Medication: 04/20 18:55 VIS not applicable for this client. ph Intake: 04/21 00:10 IV: 50ml; Total: 50ml. al5 00:10 IV: 250ml; Total: 300ml. al5 Outcome: 04/20 21:57 Decision to Hospitalize by Provider. nicho 04/21 03:49 Patient left the ED. al5 Signatures: Dispatcher [employer] Francheska Maria RN RN Stas Motta PA PA cp Bryson, James, RN RN jb4 Luciana Dudley, ALMA river3 Mimi Sam RN RN kc6 Nazanin Jasso Vivian vk Langhorst, Amanda, RN RN al5 Jenna Muro RN RN br2
--- NOTE | 2024-04-20 21:58 | EDPHYS ---
Physician Documentation [facility] Name: Zen Berg Age: 68 yrs Sex: Male : 1955 Arrival Date: 04/20/2024 Time: 18:19 Bed 6 Private MD: ED Physician Tomas Sanchez HPI: 04/20 18:55 This 68 yrs old Male presents to ER via Wheelchair with complaints of Breathing cp Difficulty. 18:55 The patient has shortness of breath at rest. Onset: The symptoms/episode began/occurred cp today. 18:55 Duration: The symptoms are continuous. cp 18:55 Associated signs and symptoms: Pertinent positives: chest pain, Pertinent negatives: cp productive cough, diaphoresis, fever, vomiting. Severity of symptoms: in the emergency department the symptoms are unchanged despite home interventions. reports patient having lumbar fusion surgery last month. reports patient appeared weak this morning and dropped glass due to weakness. Historical: - Allergies: 18:52 Bees; ap3 18:52 Chlorhexidine Gluconate; ap3 - PMHx: 18:52 Atrial fibrillation; Gout; Hypercholesterolemia; Hypertensive disorder; ap3 - PSHx: 18:52 Appendectomy; ap3 - Immunization history:: Client reports having NOT received the Covid vaccine. - Infectious Disease History:: Denies. - Social history:: Smoking status: Patient denies any tobacco usage or history of. ROS: 19:00 Constitutional: Negative for fever, poor PO intake, cp 19:00 Eyes: Negative for injury, pain, redness, and discharge, cp 19:00 ENT: Negative for drainage from ear(s), ear pain, sore throat, difficulty swallowing, difficulty handling secretions, 19:00 Cardiovascular: Positive for chest pain, edema, Negative for palpitations, 19:00 Respiratory: Positive for shortness of breath, at rest. 19:00 Abdomen/GI: Negative for abdominal pain, vomiting, diarrhea, constipation, 19:00 Back: Positive for pain at rest, pain with movement, of the lumbar area, 19:00 Neuro: Positive for altered mental status, Negative for headache, speech changes, syncope, weakness, 19:00 All other systems are negative, Exam: 19:03 ECG was reviewed by the Attending Physician. cp 19:05 Constitutional: The patient appears in no acute distress, alert, awake, cp non-diaphoretic, non-toxic, well developed, well nourished, uncomfortable, 19:05 Head/Face: Normocephalic, atraumatic. cp 19:05 Eyes: Periorbital structures: appear normal, Pupils: equal, round, and reactive to light and accomodation, Extraocular movements: intact throughout, Conjunctiva: normal, no exudate, no injection, Sclera: no appreciated abnormality, Lids and lashes: appear normal, bilaterally, 19:05 ENT: External ear(s): are unremarkable, Nose: is normal, Mouth: Lips: moist, Oral mucosa: moist, Posterior pharynx: Airway: no evidence of obstruction, patent, 19:05 Neck: ROM/movement: is normal, is supple, without pain, no range of motions limitations, no meningismus, 19:05 Chest/axilla: Inspection: normal, 19:05 Cardiovascular: Rate: normal, Rhythm: irregular, Edema: ankle edema, that is mild, JVD: is not appreciated, 19:05 Respiratory: the patient does not display signs of respiratory distress, Respirations: labored breathing, is not present, intercostal retractions, are absent, Breath sounds: decreased breath sounds, that are mild, throughout, stridor, is not appreciated, wheezing: is not appreciated, 19:05 Abdomen/GI: Inspection: abdomen appears normal, Bowel sounds: active, all quadrants, Palpation: abdomen is soft and non-tender, in all quadrants, 19:05 Back: pain, that is moderate, of the lumbar area, ROM is painful, with all movement, 19:05 Skin: cellulitis, is not appreciated, no rash present. 19:05 Neuro: Orientation: to person, place, situation, Mentation: able to follow commands, Motor: moves all fours, no focal deficits, Sensation: no obvious gross deficits, Vital Signs: 18:49 BP 120 / 75; Pulse 88; Resp 24; Temp 99.9(O); Pulse Ox 97% on R/A; Weight 111.13 kg; ap3 20:13 BP 109 / 81; Pulse 90; Resp 18 S; Pulse Ox 96% on R/A; kc6 22:12 BP 151 / 102; Pulse 89; Resp 18 S; Pulse Ox 99% on R/A; kc6 22:38 BP 108 / 83; Pulse 85; Resp 21 S; Pulse Ox 95% on R/A; jb4 23:05 Temp 99.3(O); jb4 23:25 BP 107 / 80; Pulse 83; Resp 20; Pulse Ox 97% on R/A; jb4 04/21 01:17 BP 113 / 74; Pulse 89; Resp 28 S; Pulse Ox 94% on R/A; br2 MDM: 04/20 18:37 Medical Screening Exam initiated cp 20:00 Differential diagnosis: Bronchitis CHF exacerbation, pneumonia, pulmonary edema, cp Pulmonary Embolism Sepsis. 22:00 Data reviewed: vital signs, nurses notes, lab test result(s), EKG, radiologic studies, cp CT scan, plain films, I have discussed the patient's presentation/case with the attending Emergency Department Physician; and as a result, I will admit patient. 22:00 Antibiotic administration: Rocephin and Zithromax given. Consideration of cp Admission/Observation Patient was admitted/placed on observation. I considered the following discharge prescriptions or medication management in the emergency department Medications were administered in the Emergency Department. See MAR. Independent interpretation of the following test(s) in the Emergency Department EKG: See my EKG interpretation above. Care significantly affected by the following chronic conditions: Hypertension, atrial fibrillation. 23:15 Management of patient was discussed with the following: Hospitalist: DR Lowe who will cp admit after discussion and seeing patient in ED. 04/20 18:50 Order name: Basic Metabolic Panel; Complete Time: 20:38 04/20 21:01 Interpretation: Normal except: CO2 34; GLUC 143; CRE 1.55; GFR 48. 04/20 18:50 Order name: CBC with Diff; Complete Time: 19:47 04/20 19:47 Interpretation: Normal except: LYM% 12.6; MN% 12.7. 04/20 18:50 Order name: LFT's; Complete Time: 20:38 04/20 21:02 Interpretation: Normal except: BILIT 1.2; BILID 0.5; ALB 2.6; GLOB 4.0; A/G 0.7. 04/20 18:50 Order name: Magnesium; Complete Time: 20:38 04/20 18:50 Order name: NT PRO-BNP; Complete Time: 20:38 04/20 21:02 Interpretation: Reviewed. 04/20 18:50 Order name: PT-INR; Complete Time: 20:38 cp 04/20 18:50 Order name: Troponin HS; Complete Time: 20:38 cp 04/20 18:50 Order name: Influenza Screen (a \T\ B); Complete Time: 20:38 cp 04/20 18:50 Order name: SARS RAPID; Complete Time: 20:38 cp 04/20 18:50 Order name: RSV; Complete Time: 20:38 cp 04/20 19:02 Order name: Urinalysis W/Microscopic; Complete Time: 20:38 cp 04/20 21:02 Interpretation: Normal except: UCLA Turbid; UPROT TRACE; UUROB 1+. 04/20 21:43 Order name: Blood Culture Adult (2) 04/20 21:43 Order name: Lactate w/ 2H reflex if indic. cp 04/20 21:43 Order name: Ptt, Activated cp 04/20 23:33 Order name: Urinalysis w/ reflexes EDMS 04/20 23:33 Order name: CBC with Automated Diff EDMS 04/20 23:33 Order name: CBC with Automated Diff EDMS 04/20 23:33 Order name: Comprehensive Metabolic Panel EDMS 04/20 23:33 Order name: Comprehensive Metabolic Panel EDMD 04/20 18:50 Order name: XRAY Chest (1 view); Complete Time: 20:38 04/20 21:03 Interpretation: Report review. 04/20 19:48 Order name: CT Head Brain wo Cont; Complete Time: 21:39 04/20 21:40 Interpretation: Report reviewed. 04/20 19:48 Order name: CT Chest, Abdomen, Pelvis - W/Contrast; Complete Time: 21:39 04/20 21:41 Interpretation: Report reviewed. 04/20 23:33 Order name: Physical Therapy Consult EDMD 04/20 18:50 Order name: Cardiac monitoring; Complete Time: 18:55 04/20 18:50 Order name: EKG - Nurse/Tech; Complete Time: 19:02 cp 04/20 18:50 Order name: IV Saline Lock; Complete Time: 19:16 cp 04/20 18:50 Order name: Labs collected and sent; Complete Time: 19:16 04/20 18:50 Order name: O2 Per Protocol; Complete Time: 18:55 04/20 18:50 Order name: O2 Sat Monitoring; Complete Time: 18:55 cp 04/20 21:43 Order name: Accucheck; Complete Time: 22:37 cp 04/20 21:43 Order name: IV Saline Lock - Large Bore; Complete Time: 22:37 cp 04/20 21:43 Order name: Vital Signs; Complete Time: 22:37 cp EC:03 Rate is 82 beats/min. Rhythm is irregular. QRS interval is prolonged at 114 msec. QT cp interval is normal. Interpreted by me. Reviewed by me. Administered Medications: 19:59 Drug: DuoNeb Nebulize (2.5 mg - 0.5 mg) 3 ml Nebulizer once Route: Nebulizer; kc6 22:12 Follow up: Response: No adverse reaction kc6 21:52 Drug: Mucomyst - Acetylcysteine PO 600 mg PO once Route: PO; jb4 22:12 Follow up: Response: No adverse reaction kc6 23:05 Drug: Rocephin IV 1 grams IV at calculated rate once; Given slow IV push per pharmacy jb4 instructions Route: IV; Rate: calculated rate; Site: right antecubital; 04/21 00:10 Follow up: Response: No adverse reaction; IV Status: Completed infusion; IV Intake: [id number] 04/20 23:05 Drug: Zithromax IVPB 500 mg IVPB once over 1 hrs; mix in 250 mL NS Route: IVPB; Infused jb4 Over: 1 hrs; Site: right antecubital; 04/21 00:10 Follow up: Response: No adverse reaction; IV Status: Completed infusion; IV Intake: al5 250ml Disposition: 04:00 Co-signature as Attending Physician, Tomas Sanchez MD. rn Disposition Summary: 04/20/24 21:57 Hospitalization Ordered Notes: Hospitalization Status: Inpatient Admission cp Provider: Oniel Lowe cp Location: Telemetry/MedSurg (Inpatient) cp Condition: Fair cp Problem: new cp Symptoms: have improved cp Bed/Room Type: Standard cp Room Assignment: 224(04/21/24 02:08) vc1 Diagnosis - Pneumonia in diseases classified elsewhere cp Forms: - Medication Reconciliation Form cp - SBAR form cp - Leadership Thank You Letter cp Signatures: Dispatcher ChanceHo Tomas Nieves MD MD rn Page, Corey, PA PA cp Bryson, James, RN RN jb4 Luciana Dudley RN RN ap3 Cammie Fountain, RN RN vc1 Mimi Sam RN RN kc6 Luciana No RN al5 Corrections: (The following items were deleted from the chart) 04/20 19:49 19:49 Head Brain Wo Cont+CT.RAD.BRZ ordered. EDMS EDMS 19:49 19:49 Chest Abdomen Pelvis W Con+CT.RAD.BRZ ordered. EDMS EDMS 21:43 BLOOD CULTURE*+BA.LAB.BRZ ordered. EDMS EDMS 21:43 LACTATE+C.LAB.BRZ ordered. EDMS EDMS 21:43 PTT, ACTIVATED+COAG.LAB.BRZ ordered. EDMS EDMS 04/21 02:08 04/20 21:57 cp vc1
[2024-04-20] MEDS ORDERED: AZITHROMYCIN 500 MG INJ IVPB ONE (22:47)
[2024-04-20] MEDS ORDERED: NA CHLORIDE 0.9% 250 ML ONE (22:47)
[2024-04-20] MEDS ORDERED: CEFTRIAXONE 1000 MG/VIAL ONE (22:47)
[2024-04-20] MEDS ORDERED: ALBUTEROL 2.5 MG/3 ML NEB SOL NEB PRN (23:28)
[2024-04-20] MEDS ORDERED: ONDANSETRON 4 MG/2 ML VIAL IV PRN (23:28)
[2024-04-20] MEDS ORDERED: ACETAMINOPHEN 325 MG TABLET PO PRN (23:28)
[2024-04-20] MEDS: VANCOMYCIN 2 GM in NA CHLORIDE 0.9% 500 ML IVPB ONE (23:30)
--- NOTE | 2024-04-20 23:34 | P.HP ---
Certification for Inpatient Patient admitted to: Inpatient With expected LOS: >2 Midnights Practitioner: I am a practitioner with admitting privileges, knowledge of patient current condition, hospital course, and medical plan of care. Services: Services provided to patient in accordance with Admission requirements found in Title 42 Section 412.3 of the Code of Federal Regulations Patient History Date of Service: 04/21/24 Reason for admission: Pneumonia History of Present Illness: 68 yrs old Male with past medical history of hypertension, hyperlipidemia, atrial fibrillation, gout, history of brain bleed status post craniectomy who had a lumbar fusion surgery in February 2024 came to ER with shortness of breath and chest discomfort which has been going on for the last 2 days and has been progressively getting worse and was brought to ER. Patient is a poor historian and is lethargic hence most of the history is obtained from the chart review and also talking to the ER physician. Patient denies any fever or chills. No nausea vomiting or diarrhea. Complains of shortness of breath. Complains of cough. With mucoid expectoration. Patient also complains of intractable pain in the back where the surgery done Patient was assessed in the ER and had a CT which was suggestive of for a retrocardiac pneumonia and was admitted for further management Allergies Unable to Assess Allergy (Unverified 04/21/24 04:03) Home medications list reviewed: Yes - Past Medical/Surgical History Past Medical History: Reviewed- Non-Contributory -: Hypertension, hyperlipidemia, atrial fibrillation on Eliquis Past Surgical History: Reviewed- Non-Contributory -: Craniotomy, lumbar fusion surgery - Family History Family History: Reviewed- Non-Contributory - Social History Smoking Status: Never smoker Review of Systems 10-point ROS is otherwise unremarkable Physical Examination - Vital Signs Temperature: 97.8 F Blood Pressure: 138/72 Pulse: 78 Respirations: 18 Pulse Ox (%): 94 - Physical Exam General: Alert, Oriented x2, Mild distress HEENT: Atraumatic, Normocephalic Neck: Supple Respiratory: Normal air movement, Crackles/rales, Expiratory wheezes Cardiovascular: No edema, Regular rate/rhythm Capillary refill: <2 Seconds Gastrointestinal: Soft and benign, W/out hepatosplenomegaly Musculoskeletal: No clubbing, No swelling, Tenderness Integumentary: No rashes Neurological: Other (Alert, Awake ), Abnormal gait Lymphatics: No axilla or inguinal lymphadenopathy - Studies Laboratory Data (last 24 hrs) 04/20/24 04/20/24 04/20/24 22:24 19:13 19:13 WBC 9.90 Hgb 14.6 Hct 44.8 Plt Count 274 PT 14.0 H INR 1.34 APTT 29.2 Sodium Potassium BUN Creatinine Glucose Magnesium Total Bilirubin AST ALT Alkaline Phosphatase 04/20/24 19:13 WBC Hgb Hct Plt Count PT INR APTT Sodium 137 Potassium 3.7 BUN 17 Creatinine 1.55 H Glucose 143 H Magnesium 1.8 Total Bilirubin 1.2 H AST 15 ALT 30 Alkaline Phosphatase 82 Microbiology Data (last 24 hrs): 04/20/24 19:12 Nasopharnyx Influenza Type A Antigen Screen - Final 04/20/24 19:12 Nasopharnyx Influenza Type B Antigen Screen - Final 04/20/24 19:12 Nasopharnyx Respiratory Syncytial Virus Ag Scrn - Final Assessment and Plan - Plan Pneumonia CT suggestive of retrocardiac consolidation Started on antibiotics Will obtain cultures Change antibiotic as per sensitivity Intractable back pain Status post lumbar fusion surgery Pain control Need follow-up with spinal surgeon as outpatient Hypertension Antihypertensives titrated Continue home medications and titrate as needed Hyperlipidemia Continue statin GRACIE on CKD stage II Monitor renal parameters Electrolytes monitor and replace accordingly Atrial fibrillation Monitor under telemetry Rate controlled now Continue home medications and titrate GI/DVT prophylaxis Advanced directive full code Discharge Plan: Home Plan to discharge in: 48 Hours - Advance Directives Does patient have a Living Will: No Does patient have a Durable POA for Healthcare: No - Code Status/Comfort Care Code Status: Full Code Time Spent Managing Pts Care (In Minutes): 48
[2024-04-20] MEDS ORDERED: VANCOMYCIN 1 GM in NA CHLORIDE 0.9% 250 ML IVPB SCH (23:45)
[2024-04-21] MEDS: IPRATROPIUM BROM 0.5MG/2.5ML NEB SCH (01:00)
[2024-04-21 02:43] VITALS: O2SAT 94
[2024-04-21] MEDS: NA CHLORIDE 0.9% 1,000 ML IV SCH (04:14)
[2024-04-21] MEDS: MORPHINE 2 MG/ML SYR IV PRN (04:15)
[2024-04-21 04:25] VITALS: BMI 35.2
[2024-04-21] MEDS: NA CHLORIDE 0.9% 250 ML ONE (04:27)
[2024-04-21] MEDS: VANCOMYCIN 1 GM/VIAL ONE (04:41)
[2024-04-21] MEDS: NA CHLORIDE 0.9% 500 ML ONE (04:42)
[2024-04-21] MEDS: VANCOMYCIN 2 GM in NA CHLORIDE 0.9% 500 ML IVPB ONE (05:00)
[2024-04-21 07:24] LABS: Absolute Basophils 0.1 K/uL (0-0.5); Absolute Eosinophils 0.1 K/uL (0-0.5); Absolute Lymphocytes (CBC) 1.5 K/uL (0.7-4.9); Absolute Monocytes 1.2 K/uL (0.1-1.3); Absolute Neutrophil 6.4 K/uL (1.8-8.0); Basophils % 0.6 % (0-1.3); Eosinophils % 0.9 % (0-4.4); Hemoglobin 13.6 g/dL (13.6-17.9); Lymphocytes % 16.6 % (15.3-44.8); MCH 29.6 pg (27.0-35.0); MCHC 33.1 g/dL (32.0-36.0); MCV 89.2 fL (80-100); Monocytes % 12.7 % (3.3-12.3); Neutrophils % 69.2 % (41.7-73.7); Platelets 209 thou/uL (152-406); RBC Red Blood Cell Count 4.59 M/uL (4.33-5.43); Red Cell Distribution Width 14.1 % (12.1-15.2)
[2024-04-21 07:34] LABS: ALT/SGPT 23 U/L (16-61); Albumin 2.4 g/dL (3.4-5.0); Albumin/Globulin Ratio 0.7 (1.1-1.8); Alkaline Phosphatase 69 U/L (45-117); Anion Gap 6.9 mEq/L (5.0-15.0); BUN Blood Urea Nitrogen 16 mg/dL (7-18); Bicarbonate 33 mEq/L (21-32); Bilirubin Total 1.3 mg/dL (0.2-1.0); Globulin 3.5 g/dL (2.3-3.5); Glomerular Filtration Rate 55 ml/min (=/>90); Glucose Level 114 mg/dL (74-106); Potassium 3.9 mEq/L (3.5-5.1); Protein, Total 5.9 g/dL (6.4-8.2); Sodium Level 137 mEq/L (136-145)
[2024-04-21 07:37] LABS: AST/SGOT < 10 U/L (15-37)
[2024-04-21] MEDS: HYDROCODONE/APAP 5/325 MG TAB PO PRN (08:42)
[2024-04-21] MEDS: ENOXAPARIN 40 MG/0.4 ML SQ SCH (08:47)
[2024-04-21] MEDS: CEFEPIME 2 GM in NA CHLORIDE 0.9% 100 ML IV SCH (08:48)
[2024-04-21] MEDS ORDERED: CEFEPIME 1 GM in NA CHLORIDE 0.9% 100 ML IV SCH (09:00)
[2024-04-21] MEDS: CELECOXIB 100 MG CAPSULE PO SCH (10:41)
[2024-04-21 10:57] VITALS: BP 118/74; TEMP 98
[2024-04-21] MEDS: METHYLPREDNISOLONE 125 MG INJ IV ONE (13:00)
--- NOTE | 2024-04-21 13:51 | P.DS ---
Admission Date: 04/20/24 Discharge Date: 04/21/24 Disposition: ROUTINE DISCHARGE Discharge Condition: GOOD Reason for Admission: Pneumonia Brief History of Present Illness: 68 yrs old Male with past medical history of hypertension, hyperlipidemia, atrial fibrillation, gout, history of brain bleed status post craniectomy who had a lumbar fusion surgery in February 2024 came to ER with shortness of breath and chest discomfort which has been going on for the last 2 days and has been progressively getting worse and was brought to ER. Patient is a poor historian and is lethargic hence most of the history is obtained from the chart review and also talking to the ER physician. Patient denies any fever or chills. No nausea vomiting or diarrhea. Complains of shortness of breath. Complains of cough. With mucoid expectoration. Patient also complains of intractable pain in the back where the surgery done Patient was assessed in the ER and had a CT which was suggestive of for a retrocardiac pneumonia and was admitted for further management - Physical Exam General: Alert, Oriented x2, HEENT: Atraumatic, Normocephalic Neck: Supple Respiratory: Normal air movement, unlabored Cardiovascular: No edema, Regular rate/rhythm Capillary refill: <2 Seconds Gastrointestinal: Soft and benign, Musculoskeletal: No clubbing, No swelling, Tenderness Integumentary: No rashes, lumbar incision clean dry intact intact open Neurological: Other (Alert, Awake ), Abnormal gait Hospital Course: 68 yrs old Male with past medical history of hypertension, hyperlipidemia, atrial fibrillation, gout, history of brain bleed status post craniectomy who had a lumbar fusion surgery in February 2024 came to ER with shortness of breath and chest discomfort which has been going on for the last 2 days and has been progressively getting worse and was brought to ER. Patient is a poor historian and is lethargic hence most of the history is obtained from the chart review and also talking to the ER physician. Patient denies any fever or chills. No nausea vomiting or diarrhea. Complains of shortness of breath. Complains of cough. With mucoid expectoration. Patient also complains of intractable pain in the back where the surgery done Patient was assessed in the ER and had a CT which was suggestive of for a retrocardiac pneumonia and was admitted for further management, tolerating diet, stable to discharge home, follow-up with Ortho, PCP after discharge. 98% on room air Assessment Pneumonia, discharged home on Augmentin, Vibramycin, antibiotics, albuterol inhaler take as directed, Intractable pain, lidocaine patch, continue home allopurinol, take one half of pain pill 10 mg due to sedation, confusion Hypertension, hyperlipidemia, resume home meds Atrial fibrillation, resume home meds Elevated BNP, Lasix given while inpatient, discharged home on Lasix 20 mg daily Chest x-ray Progressive retrocardiac opacity with possible small effusion, may relate to atelectasis or developing pneumonia CT Patchy left lower lobe airspace opacities with small layering left pleural effusion. This is concerning for an infectious or inflammatory process such as pneumonia, until proven otherwise. Prominent posterior mediastinal lymph nodes, may be reactive or inflammatory. GOAL: Clear understanding of disease process INSTRUCTIONS: Physician Discharge Instructions: -Follow-up with PCP in 1 to 2 weeks -Please call Dr. De Leon at [phone] if any questions regarding hospital stay -Please call nursing station at [phone] if any nursing or medication questions -Return to the emergency room if symptoms worsen Diet: ADA, low sodium Activity: Fall precautions Vital Signs/Physical Exam: Temp Pulse Resp BP Pulse Ox 98 F 83 16 118/74 95 04/21/24 08:00 04/21/24 08:00 04/21/24 08:42 04/21/24 08:00 04/21/24 08:00 Laboratory Data at Discharge: WBC 9.30 thou/uL (4.3-10.9) 04/21/24 06:39 Hgb 13.6 g/dL (13.6-17.9) 04/21/24 06:39 Hct 41.0 % (39.6-49.0) 04/21/24 06:39 Plt Count 209 thou/uL (152-406) 04/21/24 06:39 PT 14.0 SECONDS (9.4-12.5) H 04/20/24 19:13 INR 1.34 04/20/24 19:13 APTT 29.2 SECONDS (24.3-36.9) 04/20/24 22:24 Sodium 137 mEq/L (136-145) 04/21/24 06:39 Potassium 3.9 mEq/L (3.5-5.1) 04/21/24 06:39 BUN 16 mg/dL (7-18) 04/21/24 06:39 Creatinine 1.38 mg/dL (0.70-1.30) H 04/21/24 06:39 Glucose 114 mg/dL (74-106) H 04/21/24 06:39 Magnesium 1.8 mg/dL (1.6-2.4) 04/20/24 19:13 Total Bilirubin 1.3 mg/dL (0.2-1.0) H 04/21/24 06:39 AST < 10 U/L (15-37) L 04/21/24 06:39 ALT 23 U/L (16-61) 04/21/24 06:39 Alkaline Phosphatase 69 U/L (45-117) 04/21/24 06:39 Home Medications: Albuterol Inhaler [Ventolin Inhaler*] 2 puff IH Q6H PRN 30 Days #1 inh 04/21/24 Amox/Clavulanate [Augmentin 875-125 Tab] 1 each PO BID 14 Days #7 tab 04/21/24 Bisacodyl [Dulcolax] 5 mg PO DAILY PRN 30 Days #30 tab 04/21/24 Doxycycline Monohydrate 100 mg PO BID 7 Days #14 tab 04/21/24 Lidocaine 4% Patch [Lidoderm 5% Patch*] 1 patch TD DAILY PRN 30 Days #30 patch 04/21/24 predniSONE [Deltasone] 20 mg PO BID 5 Days #10 tab 04/21/24 New Medications: Amox/Clavulanate [Augmentin 875-125 Tab] 1 each PO BID 14 Days #7 tab Doxycycline Monohydrate 100 mg PO BID 7 Days #14 tab Bisacodyl [Dulcolax] 5 mg PO DAILY PRN 30 Days #30 tab PRN Reason: Constipation Lidocaine 4% Patch [Lidoderm 5% Patch*] 1 patch TD DAILY PRN 30 Days #30 patch PRN Reason: Pain Scale 2-4 (Mild) predniSONE [Deltasone] 20 mg PO BID 5 Days #10 tab Albuterol Inhaler [Ventolin Inhaler*] 2 puff IH Q6H PRN 30 Days #1 inh PRN Reason: Shortness Of Breath Followup: Pearl Carlos MD [Primary Care Provider] - Time spent managing pt's care (in minutes): 45
[2024-04-21] MEDS ORDERED: ALBUTEROL INHALER 200 PUFF/6.7 GM IH SCH (14:00)
[2024-04-21] MEDS ORDERED: FUROSEMIDE 40 MG/4 ML VIAL IV ONE (14:05)
[2024-04-21] MEDS ORDERED: APIXABAN 5 MG TABLET PO SCH (14:30)
[2024-04-21] MEDS ORDERED: AMOX/K CLAV 875 MG TAB PO SCH (17:00)
[2024-04-21] MEDS ORDERED: DOXYCYCLINE 100 MG CAP PO SCH (21:00)
[2024-04-22] MEDS ORDERED: VANCOMYCIN 2 GM in NA CHLORIDE 0.9% 500 ML IVPB SCH (05:00)
[2024-04-22] MEDS ORDERED: BISACODYL E.C. 5 MG TAB PO SCH (09:00)
== END 2024-04-21 04:30 | disposition home or self-care (01) | DRG 194 ==
LOC: ER 18:19 → ERHOLD 23:28 → 2ND 04-21 02:53
PROVIDERS: ADMIT Family Medicine; ATTEND Hospitalist
DX: J18.9 Pneumonia, unspecified organism (principal); N17.9 Acute kidney failure, unspecified; I48.91 Unspecified atrial fibrillation; M54.9 Dorsalgia, unspecified; E78.00 Pure hypercholesterolemia, unspecified; M10.9 Gout, unspecified; I12.9 Hypertensive chronic kidney disease with stage 1 through stage 4 chronic kidney disease, or unspecified chronic kidney disease; N18.2 Chronic kidney disease, stage 2 (mild); Z88.8 Allergy status to other drugs, medicaments and biological substances; Z90.49 Acquired absence of other specified parts of digestive tract; Z91.030 Bee allergy status; Z28.310 Unvaccinated for COVID-19; Z79.52 Long term (current) use of systemic steroids; Z79.899 Other long term (current) drug therapy; Z11.52 Encounter for screening for COVID-19; Z79.01 Long term (current) use of anticoagulants
CPT/HCPCS: 36415; 70450; 71045; 71260; 74177; 80048; 80053; 80076; 81001; 83605; 83735; 83880; 84484; 85025; 85610; 85730; 87040; 87205; 87804; 87807; 87811; 94760; 96365; 96368; 97116; 97161; 99285; J0692; J0696; J1650; J2270; J2919; J3535; J7030; J7040; J7050; J7608; J7613; J7644; Q9967